=== PATIENT | male | born 1970 | race Caucasian/White ===

== ENCOUNTER 2019-12-09 14:47 | Observation (INO) | payer BC, SELFPAY ==
[2019-12-09] VITALS (8 sets, daily range): BP systolic 107–127; BP diastolic 71–89; PULSE 67–88; RESP 15–18; TEMP 36.6–36.8; O2SAT 94–96; BMI 31.6; BMI 31.0; BMI 31.1
--- NOTE | 2019-12-09 15:19 | EKG12_ITS ---
Test Reason : SYNCOPE Blood Pressure : / mmHG Vent. Rate : 081 BPM Atrial Rate : 081 BPM P-R Int : 196 ms QRS Dur : 080 ms QT Int : 344 ms P-R-T Axes : 034 032 045 degrees QTc Int : 399 ms Normal sinus rhythm Normal ECG Confirmed by VERO PATEL, CASTILLO ([id number]), website/blog editor RICCI WHITNEY ([id number]) on 12/12/2019 8:56:42 AM Referred By: CLAUDIA Confirmed By:CASTILLO PHAM MD
--- NOTE | 2019-12-09 15:21 | RAD_ITS ---
STUDY: X-RAY CHEST REASON FOR EXAM: Male, 49 years old. Nausea vomiting diarrhea. Near syncopal episode. Reported hypotension. TECHNIQUE: Portable chest. COMPARISON: 08/14/2014. FINDINGS: The lungs are clear and expanded. There is no demonstrated pleural abnormality. Normal size heart. Normal mediastinum and jo. Normal visualized pulmonary arteries. Normal visualized aortic arch and descending thoracic aorta. Normal visualized thoracic spine. Normal visualized ribs, clavicles, and shoulders. There is no demonstrated abnormality of the visualized soft tissue structures of the upper abdomen. RAD/Chest 1 View (Portable) IMPRESSION: Normal x-ray examination of the chest. Electronically Signed: Mercedes Mitchell MD at 16:02 EST Tel , Service support ,
--- NOTE | 2019-12-09 15:24 | ED.DCSUM_ITS ---
- ER Visit Summary Date of Service: 12/09/19 Chief Complaint: Lightheaded History of Present Illness: The patient is a 49 M with lightheadedness. He has been having nausea, vomiting, and diarrhea over the past day. He reports decreased oral intake. He has some upper back cramping but no other associated symptoms. He was at urgent care, sitting. He felt warm and lightheaded. His blood pressure was low. He was brought to the ED by EMS. His blood pressure was normal for EMS. He says his blood pressure normally runs 105/70. He does not take medication for this. Denies any other symptoms like bleeding, fevers, chest pain, shortness of breath, or neurologic symptoms. No recent surgeries or hospitalizations. He takes vitamins. No other meds. Physical Examination: Blood pressure 127/88. Afebrile and otherwise vitals unremarkable. Heart regular. Lungs clear. Abdomen soft and nontender. No guarding or rebound. Skin appears normal. Test Results: EKG, labs, urinalysis pending. Chest x-ray pending. Emergency Department Course and Treatment: Patient was placed on a monitor. Will check orthostatics. He was treated with IV fluids. Work-up as above. Orthostatics still pending. Patient was treated with IV fluids. Hemoglobin 16.8. Glucose 115. Liver and lipase normal. Urinalysis unremarkable. Troponin 0 0.087. Chest x-ray normal. EKG showed sinus rhythm at a rate of 81 with no signs of ischemia or infarction pattern. No heart strain or S1Q3T3 pattern. Patient is PERC negative. Patient was discussed with the hospitalist and will be admitted to observation for further care. Treatment Plan: As above Disposition: PCU observation Impression: Near syncope This note was generated with [employer] software. It may contain incorrect words, spelling, and punctuation that were not noted in review of the chart prior to signing ED Disposition - Plan for ED Patient: Referrals: Kaushik Nair MD [Primary Care Provider] -
[2019-12-09] MEDS: 0.9% Normal Saline 1,000 ML 1000 ML IV ×2 (15:41→16:45)
[2019-12-09 15:43] LABS: Absolute Lymphocyte Count 1.31 X10^3/uL (0.83-4.51); Absolute Neutrophil Count 7.2 X10^3/uL (2.0-7.7); Basophil# 0.02 X10^3/uL; Basophil% 0.2 % (0-1); Eosinophil# 0.06 X10^3/uL; Eosinophils% 0.6 % (0-5); Hematocrit 49.5 % (40-54); Hemoglobin 16.8 g/dL (13.0-16.5); Lymphocyte # 1.31 X10^3/ul (4.0); Lymphocyte % 13.7 % (19-41); Mean Corp Hgb Conc 33.9 g/dL (32-36); Mean Corpuscular Hgb 29.7 pg (27.0-32.0); Mean Corpuscular Volume 87.5 fL (80-94); Mean Platelet Vol. 9.6 fl (6.2-12.0); Monocyte# 0.93 X10^3/uL; Monocyte% 9.8 % (0-10); NRBC Flagged by Analyzer 0 % (0-5); Neutrophil # 7.19 X10^3/uL (2.7-7.7); Neutrophil % 75.5 % (47-70); Platelet Count 329 K/mm3 (150-450); RBC Distribution Width CV 12.6 % (11.6-14.6); RBC Distribution Width SD 40.3 fl (35.1-43.9); Red Blood Count 5.66 M/mm3 (4.6-6.2); White Blood Count 9.5 K/mm3 (4.4-11.0)
[2019-12-09 15:54] LABS: AST(SGOT) 17 U/L (15-37); Alanine Aminotransfer ALT/SGPT 46 U/L (16-61); Albumin, Serum 3.8 g/dL (3.2-5.0); Alkaline Phosphatase 87 U/L (45-117); Anion Gap 5 (5-15); BUN 12 mg/dL (7-18); BUN/Creat Ratio 10.3 RATIO (10-20); Bilirubin, Direct 0.19 mg/dL (0.00-0.30); Calcium,Total 8.7 mg/dL (8.5-10.1); Chloride 104 mmol/L (98-107); Creatinine, Serum 1.17 mg/dL (0.70-1.30); EST Glomerular Filtration Rate 71 mL/min (>60); Est Glom Filt Rate - Afr Amer 86 mL/min (>60); Estimated Creatinine Clearance 90.75 ml/min; Globulin 4.1 g/dL (2.2-4.2); Glucose 115 mg/dL (74-106); Lipase 85 U/L (73-393); Potassium 3.5 mmol/L (3.5-5.1); Protein, Total 7.9 g/dL (6.4-8.2); Sodium Level 136 mmol/L (136-145)
[2019-12-09 15:54] LABS: Red Blood Cells-Urine 0 SEEN /hpf (0-5); Squamous Epithelial Cells - UA 0 SEEN /hpf (0-5)
[2019-12-09 15:58] LABS: Color, Urine Yellow (Yellow); Glucose, Dipstick Normal (Normal); Ketone-Dipstick 5 mg/dl (Negative); Leukocyte Esterase-Dipstick 25 /ul (Negative); Nitrite-Dipstick Negative (Negative); Occult Blood-Urine 10 /ul (Negative); Protein-Dipstick 100 mg/dl (Negative); Urine Clarity Clear (Clear); Urine Urobilinogen 1 mg/dl (Normal)
[2019-12-09 15:59] LABS: Urine Bilirubin Dipstick 1 mg/dL (Negative)
[2019-12-09 16:03] LABS: White Blood Cells 0-5 SEEN /hpf (0-5)
[2019-12-09 16:04] LABS: Bacteria 1+ /hpf (None Seen); Fine Granular Cast- Urine 0-5 SEEN /lpf (0-5); Hyaline Cast 0-5 SEEN /lpf (0-5); Mucous, Urine 2+ /hpf (<or=2+)
--- NOTE | 2019-12-09 16:51 | HP.PCM_ITS ---
Problem List (1) Near syncope Status: Acute (2) Elevated troponin Status: Acute (3) Gastroenteritis Status: Acute (4) Family history of cardiovascular disease Status: Chronic History of Present Illness Date of Admission: 12/09/19 Chief Complaint: Patient was sent to the emergency room from an urgent care for low blood pressure and near syncope. The patient is a 49 year old M with no significant past medical history on no chronic prescribed medications who on 12/08/2019 started feeling nauseated. Throughout the night he had 2 episodes of emesis and he has also had diarrhea approximately every 2 hours. The current time is 5 PM and his last bowel movement was at noon. He went the [facility] clinic at [facility] today because he felt lightheaded. While sitting waiting to be seen he felt warm and lightheaded. Reportedly his blood pressure was in the 70s systolic and EMS was summoned. He was brought to [facility] emergency department via ambulance and his blood pressure in the squad was 105/70. He did not pass out. He did have some pain between his shoulder blades. He denied abdominal pain and also denied hematemesis, history of peptic ulcer disease, melena or hematochezia. He has no food intolerances. He states his stool looks somewhat dark but he had taken Pepto-Bismol. Vital signs at presentation to the emergency department were temperature 98.3, heart rate 88, blood pressure 127/88, respiratory rate 18 and he was 95% saturated on room air. Chest x-ray revealed no infiltrates, pleural effusions or pulmonary vascular congestion. White blood cell count and differential were unremarkable. Hemoglobin was elevated at 16.8, more likely than not secondary to hemoconcentration. The BMP was unremarkable with the exception of a mildly increased glucose at 115. There is a family history of diabetes mellitus. LFTs were unremarkable. The troponin was elevated at 0.087. UA was unremarkable. The EKG is normal. He is being admitted to a monitored bed on PCU for an elevated troponin and cardiology consult will be ordered. Past Medical History Past Medical History (Chronic Problems): Chronic Problems Family history of cardiovascular disease (Chronic) Allergies No Known Allergies Allergy (Verified 12/09/19 14:51) Home Medications: Ambulatory Orders Medication Instructions Recorded Multivitamins,Therapeutic 1 tablet PO DAILY 11/06/13 [Multivitamin] Dhea DAILY 12/09/19 Fish Oil DAILY 12/09/19 Vitamin C DAILY 12/09/19 Vitamin D DAILY 12/09/19 Surgical History: - - Lasik eye surgery, R iknee arthroscopy for meniscus repair Psychiatric History: No pertinent psych hx Lives: Spouse/ Significant Other Smoking Status: Never smoker Tobacco Use: Non-smoker Alcohol: Occasional Drugs: None - *Family History Maternal History Items: - - extensive FH of CAD on the maternal side of the family. Mother had stents at the age of 59. Many of her relatives including her father had CAD. There is also a FH of DM, HTN and HLD. His mother has had DVT and PE Paternal History Items: No pertinent history Review of Systems Constitutional: Denies: Chills, Fever, Weight Change Eyes: Denies: Blurred vision HEENT: Denies: Head Aches, Sinus Congestion, Sinus Drainage, Sore Throat Cardiovascular: Reports: Light Headedness - today only, - - he does admit to having some pain in the back, midscapular. Denies: Chest Pain, Palpitations, Paroxysmal Noc. Dyspnea, Syncope Respiratory: Denies: Cough, Hemoptysis, Pleuritic Pain, Shortness of Breath, Shortness of breath at rest, Shortness of breath upon exertion, Sputum production Gastrointestinal: Reports: Diarrhea, Nausea, Vomiting. Denies: Abdominal Pain, Dyspepsia, Hematemesis, Hematochezia Genitourinary: Denies: Dysuria Musculoskeletal: Denies: Joint Pain, Joint Tenderness, Leg Pain Skin: Denies: Jaundice, Rash, Wounds Neurological: Denies: Balance problems, Focal weakness, Numbness, Tingling Psychiatric: Denies: Anxiety, Depression, Homicidal Ideations, Suicidal Ideations Endocrine: Denies: Hx of Thyroiditis Hematologic/ Lymphatic: Denies: Easy Bruising, Easy Bleeding, Hx of blood clot VTE Information - Inpt Only VTE Present on Admission: No VTE Mechan Device Prophylaxis: None VTE Pharm Prophylaxis ordered?: No Reason prophylaxis not ordered:: Treatment Not Indicated Patient Problems: Active and Suspected Problems Near syncope (Acute) Elevated troponin (Acute) Gastroenteritis (Acute) - Physical Exam Vitals/I&O's: Vital Signs Temp Pulse Resp BP Pulse Ox 98.3 F 78 18 116/73 95 12/09/19 14:48 12/09/19 16:44 12/09/19 14:48 12/09/19 16:44 12/09/19 14:48 Oxygen Delivery Method Room Air Weight: 246 lb 14.684 oz Body Mass Index (BMI) 31.6 Intake and Output for Last 24 Hours 12/07/19 12/08/19 12/09/19 23:59 23:59 23:59 Intake Total 1000 / 1000 Balance 1000 / 1000 General: Alert, Oriented x3, Cooperative, Well developed, Well nourished HEENT: Atraumatic, PERRLA, EOMI, Normocephalic Oral: No Gingival or Mucosal Lesions/ Ulcerations, Dry Mucosa Neck: Supple, No JVD, Negative Carotid Bruits, No Nodes, Trachea Midline Lungs: Clear to auscultation, Normal air movement, No rhonchi, No wheeze, No rales Cardiovascular: Regular rate, Regular Rhythm, Normal S1, Normal S2, No murmurs, No Ectopic Activity, No rub noted, No Gallop Abdomen: Bowel Sounds Present - not hyperactive, Soft, Non Tender, Non- Distended, - - No guarding with palpation Extremities: No clubbing, No cyanosis, No edema, Capillary Refill Less than 3 Seconds, No Calf Tenderness, Peripheral Pulses Normal Skin: No rashes, No breakdown Musculoskeletal: No Tenderness to Palpation of Joints or Extremities, No Muscle Wasting Neurological: Cranial nerves II-XII grossly intact, Neuro grossly intact Psych/Mental Status: Normal Affect, Appropriate Laboratory Results 12/09/19 14:55: WBC 9.5, RBC 5.66, Hgb 16.8 H, Hct 49.5, MCV 87.5, MCH 29.7, MCHC 33.9, RDW Std Deviation 40.3, RDW Coeff of Tim 12.6, Plt Count 329, MPV 9.6, Immature Gran % (Auto) 0.200, Neut % (Auto) 75.5 H, Lymph % (Auto) 13.7 L, [place] % (Auto) 9.8, Eos % (Auto) 0.6, Baso % (Auto) 0.2, Absolute Neuts (auto) 7.2, Absolute Lymphs (auto) 1.31, Nucleated RBC % 0 12/09/19 14:55: Sodium 136, Potassium 3.5, Chloride 104, Carbon Dioxide 27.0, Anion Gap 5, BUN 12, Creatinine 1.17, Estim Creat Clear Calc 90.75, Est GFR (MDRD) Af Amer 86, Est GFR (MDRD) Non-Af 71, BUN/Creatinine Ratio 10.3, Glucose 115 H, Calcium 8.7, Total Bilirubin 0.90, Direct Bilirubin 0.19, AST 17, ALT 46, Alkaline Phosphatase 87, Troponin I 0.087 H, Total Protein 7.9, Albumin 3.8, Globulin 4.1, Lipase 85 12/09/19 15:50: Urine Color Yellow, Urine Clarity Clear, Urine pH 6.0, Ur Specific [place] 1.020, Urine Protein 100 H, Urine Glucose (UA) Normal, Urine Ketones 5 H, Urine Occult Blood 10 H, Urine Nitrite Negative, Urine Bilirubin 1 H, Urine Urobilinogen 1 H, Ur Leukocyte Esterase 25 H, Urine RBC 0 SEEN, Urine WBC 0-5 SEEN, Ur Squamous Epith Cells 0 SEEN, Urine Bacteria 1+, Hyaline Casts 0-5 SEEN, Fine Granular Casts 0-5 SEEN, Urine Mucus 2+ Current Medications Sodium Chloride () 1,000 mls @ 1,000 mls/hr IV .Q1H ELO Stop: 12/09/19 17:19 Last Admin: 12/09/19 16:45 Dose: 1,000 mls/hr Documented by: Assessment/Plan All Active Problems Near syncope (Acute) Elevated troponin (Acute) Gastroenteritis (Acute) Impressions 1. Gastroenteritis-more likely than not viral. Hydration ordered. No recent antibiotics and no history of C. difficile. No recent travel. No sick contacts that he knows of. No food intolerances 2. Indeterminate troponin with mid back pain, interscapular. Admitted to a monitored bed on PCU. Serial cardiac enzymes ordered. Cardiology consult with Dr. Miller. Treadmill nuclear stress test in the a.m. if he is feeling better. Lipid panel in the a.m. 3. Extensive maternal family history of cardiovascular disease. Code Visit OBSV E&M: [id number] Initial observation care L2
--- NOTE | 2019-12-09 17:16 | EKG12_ITS ---
Test Reason : DYSRHYTHMIA Blood Pressure : / mmHG Vent. Rate : 078 BPM Atrial Rate : 078 BPM P-R Int : 194 ms QRS Dur : 082 ms QT Int : 364 ms P-R-T Axes : 039 039 035 degrees QTc Int : 414 ms Normal sinus rhythm Normal ECG When compared with ECG of 09-DEC-2019 15:29, MANUAL COMPARISON REQUIRED, DATA IS UNCONFIRMED Confirmed by BRIAN MONTERO ([id number]), loan expeditor RICCI WHITNEY ([id number]) on 12/13/2019 9:53:04 AM Referred By: DAPHNE Confirmed By:BRIAN MONTERO
[2019-12-09 17:42] LABS: Magnesium 2.2 mg/dL (1.6-2.6)
--- NOTE | 2019-12-09 18:15 | STEWCON_ITS ---
Reason For Study: FAMLY HX, SYNCOPE/NEAR SYNCOPE Stress Results Protocol: Rao Protocol WITH DEFINITY Maximum Predicted HR: 173 bpm Target HR: 147 bpm % Maximum Predicted HR: 91 % DurationHeart Rate Stage (mm:ss) (bpm) BP Comment BASELINE 70 118/883 CC DEFINITY FOR ENTIRE TEST STAGE 1 3:00 90 122/78 STAGE 2 3:00 96 130/70 STAGE 3 3:00 115 146/76 STAGE 4 3:00 137 160/82 STAGE 5 2:00 157 / RECOVERY 97 124/70 Stress Duration: 14:00 mm:ss Maximum Stress HR: 157 bpm Baseline Echocardiogram Findings The estimated ejection fraction is 65 %. Stress Echo Wall motion Data Resting WM Intermediate WM Stress WM Resting Wall Motion Wall Motion Stress No regional wall motion No regional wall motion abnormalities noted. abnormalities noted. EKG Data The baseline ECG displays normal sinus rhythm. The patient exercised according to the regular Rao protocol for a total duration of 14:00. The maximum heart rate attained was 157 beats per minute. This was 90% of maximum predicted heart rate. The patient exercised into stage 5 of the Rao protocol. During stress, there were no ST or T wave changes noted to suggest ischemia. No clinical angina was noted. No arrhythmias noted. Interpretation Summary The estimated ejection fraction is 65 %. Normal, adequate, treadmill echocardiogram. Negative for ischemia by EKG and echocardiographic criteria. No anginal symptoms noted. No arrhythmias noted. Above average exercise capacity for age. Test terminated due to the attainment target heart rate and dyspnea. Final LVEF is 75%. Decreased sensitivity due to poor echo windows requiring Definity agent. Patient tolerate procedure well. No complications. The study was technically difficult. Contrast injection was performed. Ordering Physician: Imtiaz Miller Referring Physician: Imtiaz Miller MD Performed By: Megan Santiago, JASS, RVT
[2019-12-09] MEDS: Aspirin 81 MG TAB.CHEW 324 MG PO (18:48)
[2019-12-09] MEDS: 0.9% Saline Lock 10 ML Syringe IV (19:54)
[2019-12-09] MEDS: Atorvastatin Calcium 40 MG Tablet PO (21:23)
[2019-12-09] MEDS: Famotidine 20 MG Tablet PO (21:23)
[2019-12-10 03:00] VITALS: BP 105/79; PULSE 64; PULSE 66; RESP 16; TEMP 37.2; O2SAT 97
[2019-12-10 05:17] LABS: Hemoglobin 14.7 g/dL (13.0-16.5); Mean Corp Hgb Conc 34.2 g/dL (32-36); Mean Corpuscular Hgb 30.2 pg (27.0-32.0); Mean Corpuscular Volume 88.5 fL (80-94); Mean Platelet Vol. 9.2 fl (6.2-12.0); Platelet Count 263 K/mm3 (150-450); RBC Distribution Width CV 12.7 % (11.6-14.6); RBC Distribution Width SD 41.3 fl (35.1-43.9); Red Blood Count 4.86 M/mm3 (4.6-6.2); White Blood Count 7.4 K/mm3 (4.4-11.0)
[2019-12-10 05:25] VITALS: BP 119/74; PULSE 72; RESP 16; TEMP 36.7; O2SAT 97
[2019-12-10] MEDS: Aspirin E.C. 81 MG Tablet PO (05:27)
[2019-12-10 05:29] LABS: D-Dimer Quantitative (DVT/PE) 0.44 FEU/ug/m (0.27-0.49)
[2019-12-10 05:41] LABS: Anion Gap 4 (5-15); BUN 7 mg/dL (7-18); BUN/Creat Ratio 8.3 RATIO (10-20); Calcium,Total 8.3 mg/dL (8.5-10.1); Chloride 109 mmol/L (98-107); Cholesterol 130 mg/dL (200); Creatinine, Serum 0.84 mg/dL (0.70-1.30); EST Glomerular Filtration Rate 103 mL/min (>60); Est Glom Filt Rate - Afr Amer 125 mL/min (>60); Glucose 98 mg/dL (74-106); High Density Lipoprotein 40 mg/dL; Sodium Level 141 mmol/L (136-145); Triglycerides 92 mg/dL; Very Low Density Lipoprotein 18 mg/dL (5-40)
--- NOTE | 2019-12-10 05:55 | EKG12_ITS ---
Test Reason : AM EKG Blood Pressure : / mmHG Vent. Rate : 068 BPM Atrial Rate : 068 BPM P-R Int : 188 ms QRS Dur : 082 ms QT Int : 388 ms P-R-T Axes : 046 041 038 degrees QTc Int : 412 ms Normal sinus rhythm Normal ECG When compared with ECG of 09-DEC-2019 17:42, MANUAL COMPARISON REQUIRED, DATA IS UNCONFIRMED Confirmed by BRIAN MONTERO ([id number]), tape editor RICCI WHITNEY ([id number]) on 12/13/2019 9:59:34 AM Referred By: DR SERNA Confirmed By:BRIAN MONTERO
--- NOTE | 2019-12-10 05:55 | ECHOCS_ITS ---
Reason For Study: Family Hx Procedure This was a 2D Doppler, Color Flow transthoracic echocardiogram. Exam performed in department. Left Ventricle Normal size and thickness. The estimated ejection fraction is 65 %. Normal diastology for age. No regional wall motion abnormalities noted. Right Ventricle Normal size and thickness. Normal systolic function. Atria Normal left atrium. Normal right atrium. Normal atrial septum. Mitral Valve The mitral valve is structurally normal. No prolapse or stenosis seen. Trivial mitral valve insufficiency. Tricuspid Valve Normal tricuspid valve. Trivial tricuspid valve insufficiency. Right ventricular systolic pressure estimated to be 23 mmHg. Aortic Valve Normal aortic valve. Trisinus/trileaflet aortic valve. Pulmonic Valve Normal pulmonic valve. Great Vessels Normal aortic root. Normal arch. Normal inferior vena cava. Inferior vena cava collapse with sniff. Pericardium/Pleural No pericardial effusion. Medication Diluted definity 3ml given slow IV push to enhance endocardial definition. MMode/2D Measurements & Calculations LVIDd: 4.4 cm IVSd: 1.2 cm LAV(MOD-bp): 37.4 ml LVIDs: 2.5 cm LVPWd: 1.1 cm RVDd: 2.7 cm FS: 44.2 % LAV(MOD-bp) Indexed: 15.9 ml/m2 LAV(MOD-sp2): 52.9 ml LAV(MOD-sp4): 24.4 ml SV(MOD-sp4): 68.3 ml SV(sp4-el): 72.9 ml LVAd ap4: 32.5 cm2 EDV(MOD-sp4): 101.3 ml EDV(sp4-el): 105.6 ml LVAs ap4: 16.3 cm2 ESV(MOD-sp4): 33.0 ml ESV(sp4-el): 32.6 ml EF(MOD-sp4): 67.4 % EF(sp4-el): 69.1 % LA A4 area: 13.6 cm2 RA A4 area: 14.2 cm2 Doppler Measurements & Calculations MV E max antwan: 99.7 cm/sec Lat Peak E' Antwan: 12.6 cm/sec Med Peak E' Antwan: 9.6 cm/sec MV A max antwan: 58.1 cm/sec E/E' lat: 7.9 E/E' med: 10.4 MV E/A: 1.7 Ao V2 max: 144.5 cm/sec LV V1 max: 111.7 cm/sec PA V2 max: 81.5 cm/sec Ao max P.4 mmHg LV V1 max P.0 mmHg Ao V2 mean: 95.8 cm/sec Ao mean P.1 mmHg Ao V2 VTI: 29.3 cm TR max antwan: 211.0 cm/sec TR max P.8 mmHg Interpretation Summary The estimated ejection fraction is 65 %. Normal diastology for age. Trivial mitral valve insufficiency. Trivial tricuspid valve insufficiency. Right ventricular systolic pressure estimated to be 23 mmHg. There is no comparison study available. The study was technically difficult. Contrast injection was performed. Ordering Physician: Chana Day Referring Physician: Kaushik Nair Performed By: Megan Santiago RDCS, RVT
[2019-12-10 06:59] VITALS: PULSE 71
--- NOTE | 2019-12-10 09:37 | CON.PCM_ITS ---
Problem List (1) Near syncope Status: Acute (2) Elevated troponin Status: Acute (3) Gastroenteritis Status: Acute (4) Family history of cardiovascular disease Status: Chronic Reason for Consult Date of Consultation: 12/10/19 Reason for Consultation: Lightheadedness, dizziness, indeterminate troponin, family history of heart disease History of Present Illness: The patient is a 49 year old M lifelong non-smoker, nondrinker, nondiabetic, no previous known cardiovascular disease, positive family history of coronary artery disease with stenting in his mother in her mid 60s, who was doing well up until the last few days when he developed a flulike illness causing him to have nausea, vomiting, and diarrhea. The patient sought medical assistance at a local [facility] clinic, and became lightheaded during that visit. This precipitated a transportation to [facility] ER where he complained of mid back pain. His EKG showed normal sinus rhythm, no acute changes. His initial troponin was 0.087, and decreased to 0.083. The patient underwent a 2D echo with Doppler this morning which demonstrated normal LV size, normal LV function, RVSP in the normal limits. He then underwent a treadmill echocardiogram which was negative for inducible ischemia. Upon further history he denies any recent chest pain, angina, shortness of breath or dyspnea on exertion. [] Past Medical History Allergies/Adverse Reactions: Allergies No Known Allergies Allergy (Verified 12/09/19 14:51) Home Medications: Ambulatory Orders Medication Instructions Recorded Multivitamins,Therapeutic 1 tablet PO DAILY 11/06/13 [Multivitamin] Dhea DAILY 12/09/19 Fish Oil DAILY 12/09/19 Vitamin C DAILY 12/09/19 Vitamin D DAILY 12/09/19 Past Medical History (Chronic Problems): Chronic Problems Family history of cardiovascular disease (Chronic) Surgical History: - - Lasik eye surgery, R iknee arthroscopy for meniscus repair Psychiatric History: No pertinent psych hx - *Family History Maternal History Items: - - extensive FH of CAD on the maternal side of the family. Mother had stents at the age of 59. Many of her relatives including her father had CAD. There is also a FH of DM, HTN and HLD. His mother has had DVT and PE Paternal History Items: No pertinent history Lives: Spouse/ Significant Other Smoking Status: Never smoker Tobacco Use: Non-smoker Alcohol: Occasional Drugs: None Review of Systems - Review of Systems General: Denies: Fever, Night Sweats, Fatigue Cardiovascular: Denies: Chest Discomfort, Shortness of Breath, Orthopnea, PND, Peripheral Edema, Palpitations, Lightheadedness, Dizziness, Near Syncope, Synco pe Respiratory: Denies: Cough, Sputum Production, Hemoptysis Gastrointestinal: Denies: Hematemesis, Hematochezia, Melena Genitourinary: Denies: Dysuria, Hematuria Skin: Denies: Rash Subjectve: Patient no acute distress. Objective: Vital Signs Temp Pulse Resp BP Pulse Ox 98.1 F 71 16 119/74 97 12/10/19 05:25 12/10/19 06:59 12/10/19 05:25 12/10/19 05:25 12/10/19 05:25 Oxygen Delivery Method Room Air Weight: 241 lb 13.553 oz Body Mass Index (BMI) 31.0 Intake and Output for Last 24 Hours 12/08/19 12/09/19 12/10/19 23:59 23:59 23:59 Intake Total 2950.42 / 2950.42 541.25 / 541.25 Balance 2950.42 / 2950.42 541.25 / 541.25 General: Awake, Alert, Oriented x 3 HEENT: PERRL, EOMI, Sclera Non Icteric Neck: Supple, Good ROM, No Lymph Node Enlargement Lungs: Clear to auscultation Cardiovascular: Regular Rhythm, Normal S1, Normal S2, No Murmurs, No Rubs, No Gallops Vascular: No Carotid Bruits, Normal Femoral Pulses, Normal Radial Pulses, Normal Dorsalis Pedal Pulse, Normal Posterior Tibial Pulses Abdomen: Bowel Sounds Present, Soft, Non Tender, No HSM, No Organomegaly Extremities: No Cyanosis, No Clubbing, No edema Neurological: No Focal Motor or Sensory Deficit 12/09/19 14:55: WBC 9.5, RBC 5.66, Hgb 16.8 H, Hct 49.5, MCV 87.5, MCH 29.7, MCHC 33.9, Plt Count 329, MPV 9.6, Immature Gran % (Auto) 0.200, Neut % (Auto) 75.5 H, Lymph % (Auto) 13.7 L, [place] % (Auto) 9.8, Eos % (Auto) 0.6, Baso % (Auto) 0.2, Absolute Neuts (auto) 7.2, Nucleated RBC % 0 12/09/19 14:55: Sodium 136, Potassium 3.5, Chloride 104, Carbon Dioxide 27.0, Anion Gap 5, BUN 12, Creatinine 1.17, Est GFR (MDRD) Af Amer 86, Est GFR (MDRD) Non-Af 71, BUN/Creatinine Ratio 10.3, Glucose 115 H, Calcium 8.7, Total Bilirubin 0.90, Direct Bilirubin 0.19, Troponin I 0.087 H 12/09/19 14:55: Magnesium 2.2 12/09/19 15:50: Urine Color Yellow, Urine Clarity Clear, Urine pH 6.0, Ur Specific [place] 1.020, Urine Protein 100 H, Urine Glucose (UA) Normal, Urine Ketones 5 H, Urine Occult Blood 10 H, Urine Nitrite Negative, Urine Bilirubin 1 H, Urine Urobilinogen 1 H, Ur Leukocyte Esterase 25 H, Urine RBC 0 SEEN, Urine WBC 0-5 SEEN 12/09/19 17:50: Troponin I 0.085 H 12/09/19 20:45: Troponin I 0.083 H 12/10/19 04:50: Sodium 141, Potassium 4.0, Chloride 109 H, Carbon Dioxide 28.0, Anion Gap 4 L, BUN 7, Creatinine 0.84, Est GFR (MDRD) Af Amer 125, Est GFR (MDRD) Non-Af 103, BUN/Creatinine Ratio 8.3 L, Glucose 98, Calcium 8.3 L, Triglycerides 92, Cholesterol 130, LDL Cholesterol 72, VLDL Cholesterol 18, HDL Cholesterol 40 12/10/19 04:50: WBC 7.4, RBC 4.86, Hgb 14.7, Hct 43.0, MCV 88.5, MCH 30.2, MCHC 34.2, Plt Count 263, MPV 9.2 12/10/19 04:50: D-Dimer Quant (PE/DVT) 0.44 Rhythm: EKG: ECHO: Stress Test: Cardiac Cath: PCI: CT Surgery: Holter monitor: EPS: PPM: CXR: Chest CT Scan: Assessment/Plan 1. Lightheadedness and dizziness: The patient's lightheadedness and dizziness are most likely a result of his recent GI illness with associated nausea, vomiting, and diarrhea and most likely mild dehydration. The patient is feeling much better with IV fluid resuscitation. His echocardiogram shows normal LV size and function normal pulmonary pressures, and his stress echocardiogram is negative for inducible ischemia. I do not believe the patient requires any additional cardiac evaluation at this time. His LDL 72, and HDL is 40. No additional antilipid therapy needed at this time. 2. Patient may be discharged home and follow-up with his primary care physician. 3. Thank you very much for the opportunity to participate in the cardiac care of your patient. Consultation time took place between 8 AM and 8:30 AM. Code Visit Inpatient E&M: [id number] Init Hosp L2
--- NOTE | 2019-12-10 10:38 | DCINST_ITS ---
- Discharge Diagnoses Current Active Problems: Current Active and Chronic Problems Near syncope (Acute) Elevated troponin (Acute) Gastroenteritis (Acute) Family history of cardiovascular disease (Chronic) You will use the following diet at home:: Regular Discharge Activity: Return to Normal Activity Weight Bearing Status: Weight bearing as tolerated Call your doctor if you observe: Fever of 101 or Higher, Coldness, Increased Pain, Change in Color, Inability to have a bowel movement, Shortness of breath, Dizziness, Fainting spells, Swelling in the ankles, Chest pain, Prolonged hiccoughing, Increased palpitations (irregular heartbeat), Calf discomfort, Uncontrolled pain Allergies/Adverse Reactions: Allergies No Known Allergies Allergy (Verified 12/09/19 14:51) Medications to take at Discharge Multivitamins,Therapeutic [Multivitamin] 1 tablet PO DAILY 11/06/13 Dhea DAILY 12/09/19 Fish Oil DAILY 12/09/19 Vitamin C DAILY 12/09/19 Vitamin D DAILY 12/09/19 Primary Care Physician: Kaushik Nair MD [Primary Care Provider] - Please follow up with your Primary Care Physician in: in 2 week Test Results: Test results from this visit will be discussed in further detail at your follow- up appointment, if applicable.
--- NOTE | 2019-12-10 10:40 | DS.PCM_ITS ---
Discharge Date and Diagnosis Date of Admission: 12/09/19 Date of Discharge: 12/10/19 - Primary Discharge Diagnosis Active and Suspected Problems Near syncope (Acute) Elevated troponin (Acute) Gastroenteritis (Acute) - Secondary Discharge Diagnosis Chronic Problems Family history of cardiovascular disease (Chronic) Hospital Course and Treatment Imaging Results: 12/10/19 05:55 Echo Complete W/ Contrast [ECHO] Routine Summary of Care Provided: The patient is a 49 year old M with no significant past medical history was admitted for 2 episodes of nausea, diarrhea every 2-3 hours, nausea and lightheadedness and low blood pressure. With blood pressure was 70s in urgent care and came by EMS and was admitted. Patient was resuscitated. He did not had abdominal pain. In ED his blood pressure was 127/88. Chest x-ray no acute abnormality. UA negative no leukocytosis. Hemoglobin 16.8 more likely secondary to hemoconcentration. BMP unremarkable. Repeat CBC shows H&H 14.7/43. [] Diagnosis: 1 Acute gastroenteritis most probably viral with dehydration and hemoconcentration: Resolved. No recent antibiotic intake or history of C. difficile or travel history. No sick contacts. 2. Indeterminate troponin with mid back pain, interscapular. Mildly elevated troponins with mild interscapular back pain and near syncope symptoms therefore x ray consultant consulted. EKG normal. Patient had a treadmill stress echo and was negative for acute ischemia. Echo shows normal LV size, and systolic function. Fasting profile within normal limit. 3. Extensive maternal family history of cardiovascular disease. Discharge medication reconciliation done. Discharge follow-up instructions completed. Discharge process discussed with the patient and all questions were answered to patient's satisfaction. Follow-up with PCP Subjective: Seen and examined. Patient had mild diarrhea, dizziness and low pressure for which she was admitted that has resolved. no shortness of breath or respiratory distress. Hemodynamically stable. No hypoxia or tachypnea - Physical Exam Vitals/I&O's: Vital Signs Temp Pulse Resp BP Pulse Ox 98.1 F 71 16 119/74 97 12/10/19 05:25 12/10/19 06:59 12/10/19 05:25 12/10/19 05:25 12/10/19 05:25 Oxygen Delivery Method Room Air Weight: 241 lb 13.553 oz Body Mass Index (BMI) 31.0 Intake and Output for Last 24 Hours 12/08/19 12/09/19 12/10/19 23:59 23:59 23:59 Intake Total 2950.42 / 2950.42 541.25 / 541.25 Balance 2950.42 / 2950.42 541.25 / 541.25 General: Alert, Oriented x3, Cooperative HEENT: Atraumatic, PERRLA, EOMI, Normocephalic Neck: Supple, No JVD, Negative Carotid Bruits Lungs: Clear to auscultation, Normal air movement, No rhonchi, No wheeze, No rales Cardiovascular: Regular rate, Regular Rhythm, Normal S1, Normal S2, No murmurs Abdomen: Bowel Sounds Present, Soft, Non Tender, Non-Distended Extremities: No edema, Capillary Refill Less than 3 Seconds Skin: No rashes, No breakdown Musculoskeletal: No Tenderness to Palpation of Joints or Extremities Neurological: Cranial nerves II-XII grossly intact Psych/Mental Status: Normal Affect, Appropriate Laboratory Results 12/09/19 14:55: WBC 9.5, RBC 5.66, Hgb 16.8 H, Hct 49.5, MCV 87.5, MCH 29.7, MCHC 33.9, RDW Std Deviation 40.3, RDW Coeff of Tim 12.6, Plt Count 329, MPV 9.6, Immature Gran % (Auto) 0.200, Neut % (Auto) 75.5 H, Lymph % (Auto) 13.7 L, Roane % (Auto) 9.8, Eos % (Auto) 0.6, Baso % (Auto) 0.2, Absolute Neuts (auto) 7.2, Absolute Lymphs (auto) 1.31, Nucleated RBC % 0 12/09/19 14:55: Sodium 136, Potassium 3.5, Chloride 104, Carbon Dioxide 27.0, Anion Gap 5, BUN 12, Creatinine 1.17, Estim Creat Clear Calc 90.75, Est GFR (MDRD) Af Amer 86, Est GFR (MDRD) Non-Af 71, BUN/Creatinine Ratio 10.3, Glucose 115 H, Calcium 8.7, Total Bilirubin 0.90, Direct Bilirubin 0.19, AST 17, ALT 46, Alkaline Phosphatase 87, Troponin I 0.087 H, Total Protein 7.9, Albumin 3.8, Globulin 4.1, Lipase 85 12/09/19 14:55: Magnesium 2.2 12/09/19 15:50: Urine Color Yellow, Urine Clarity Clear, Urine pH 6.0, Ur Specific [place] 1.020, Urine Protein 100 H, Urine Glucose (UA) Normal, Urine Ketones 5 H, Urine Occult Blood 10 H, Urine Nitrite Negative, Urine Bilirubin 1 H, Urine Urobilinogen 1 H, Ur Leukocyte Esterase 25 H, Urine RBC 0 SEEN, Urine WBC 0-5 SEEN, Ur Squamous Epith Cells 0 SEEN, Urine Bacteria 1+, Hyaline Casts 0-5 SEEN, Fine Granular Casts 0-5 SEEN, Urine Mucus 2+ 12/09/19 17:50: Troponin I 0.085 H 12/09/19 20:45: Troponin I 0.083 H 12/10/19 04:50: Sodium 141, Potassium 4.0, Chloride 109 H, Carbon Dioxide 28.0, Anion Gap 4 L, BUN 7, Creatinine 0.84, Estim Creat Clear Calc 126.40, Est GFR (MDRD) Af Amer 125, Est GFR (MDRD) Non-Af 103, BUN/Creatinine Ratio 8.3 L, Glucose 98, Calcium 8.3 L, Triglycerides 92, Cholesterol 130, LDL Cholesterol 72, VLDL Cholesterol 18, HDL Cholesterol 40 12/10/19 04:50: WBC 7.4, RBC 4.86, Hgb 14.7, Hct 43.0, MCV 88.5, MCH 30.2, MCHC 34.2, RDW Std Deviation 41.3, RDW Coeff of Tim 12.7, Plt Count 263, MPV 9.2 12/10/19 04:50: D-Dimer Quant (PE/DVT) 0.44 Current Medications Acetaminophen (Tylenol) 650 mg PO Q6H PRN PRN PRN Reason: Pain Score 1-10/Temp > 100.7 F Al Hydroxide/Mg Hydroxide (Mylanta Ii) 30 ml PO Q6H PRN PRN PRN Reason: Gastric Burning Aspirin (Ecotrin) 81 mg PO DAILY@0800 [facility] Last Admin: 12/10/19 05:27 Dose: 81 mg Documented by: Atorvastatin Calcium (Lipitor) 40 mg PO QHS [facility] Last Admin: 12/09/19 21:23 Dose: 40 mg Documented by: Famotidine (Pepcid) 20 mg PO BID [facility] Last Admin: 12/10/19 09:46 Dose: Not Given Documented by: Potassium Chloride 10 meq/ (Sodium Chloride) 1,005 mls @ 125 mls/hr IV .[id number] [facility] Last Admin: 12/10/19 03:50 Dose: 125 mls/hr Documented by: Sodium Chloride () 250 mls @ 15 mls/hr IV .[id number] PRN PRN Reason: Saline Flush Sodium Chloride () 250 mls @ 15 mls/hr IV .[id number] PRN PRN Reason: Additional IVPB Infusion Nitroglycerin (Nitrostat) 0.4 mg SUBLINGUAL Q5M PRN PRN Reason: CARDIAC/CHEST PAIN Ondansetron HCl (Zofran) 4 mg IV Q8H PRN PRN PRN Reason: NAUSEA/VOMITING Prochlorperazine Edisylate (Compazine Iv) 5 mg IV Q4H PRN PRN PRN Reason: Breakthrough Nausea/Vomiting Sodium Chloride () 10 - 40 ml IV UD PRN PRN Reason: SALINE FLUSH Last Admin: 12/09/19 19:54 Dose: 10 ml Documented by: Zolpidem Tartrate (Ambien (Generic)) 5 mg PO QHS PRN PRN PRN Reason: INSOMNIA Home Medications: Medications to take at Discharge Multivitamins,Therapeutic [Multivitamin] 1 tablet PO DAILY 11/06/13 Dhea DAILY 12/09/19 Fish Oil DAILY 12/09/19 Vitamin C DAILY 12/09/19 Vitamin D DAILY 12/09/19 Primary Care Physician: Kaushik Nair MD [Primary Care Provider] - Medical Necessity - Tobacco Use Smoking Status: Never smoker Tobacco Use: Non-smoker Meaningful Use Info Meaningful Use Diagnoses (Choose all that apply): None applicable Code Visit OBSV E&M: 29941 Observation care discharge
--- NOTE | 2019-12-10 10:44 | PHA.DC.MR ---
Pharmacy Service has performed discharge medication reconciliation for this patient. The patient's discharge medication list was reviewed for discrepancies and discrepancies were resolved. Home Medications Multivitamins,Therapeutic [Multivitamin] 1 tablet PO DAILY 11/06/13 Dhea DAILY 12/09/19 Fish Oil DAILY 12/09/19 Vitamin C DAILY 12/09/19 Vitamin D DAILY 12/09/19
== END 2019-12-10 10:39 | disposition home or self-care (01) ==
LOC: ED 15:36 → PCU 16:58
PROVIDERS: Admitting Provider Internal Medicine; Emergency Provider Emergency Medicine; PCP Family Medicine; Visit Provider Internal Medicine
DX: R55 Syncope and collapse (principal); K52.9 Noninfective gastroenteritis and colitis, unspecified; Z82.49 Family history of ischemic heart disease and other diseases of the circulatory system; I08.1 Rheumatic disorders of both mitral and tricuspid valves; R42 Dizziness and giddiness; R79.89 Other specified abnormal findings of blood chemistry
CPT/HCPCS: 36415; 71045; 80048; 80061; 80076; 81001; 83690; 83735; 84484; 85025; 85027; 85379; 93005; 93017; 93306; 93350; 96360; 96361; 99218; 99285; J7030; Q9957; A4216; C8928; C8929; G0378

== ENCOUNTER 2021-11-27 09:53 | Outpatient (CLI) | payer BC, SELFPAY ==
[2021-11-27 12:19] LABS: Absolute Lymphocyte Count 2.63 X10^3/uL (0.83-4.51); Absolute Neutrophil Count 3.8 X10^3/uL (2.0-7.7); Basophil# 0.06 X10^3/uL; Basophil% 0.8 % (0-1); Eosinophil# 0.24 X10^3/uL; Eosinophils% 3.1 % (0-5); Hematocrit 46.7 % (40-54); Hemoglobin 15.9 g/dL (13.0-16.5); Lymphocyte # 2.63 X10^3/ul (0.83-4.51); Lymphocyte % 33.6 % (19-41); Mean Corpuscular Hgb 30.5 pg (27.0-32.0); Mean Corpuscular Volume 89.6 fL (80-94); Mean Platelet Vol. 9.8 fl (6.2-12.0); Monocyte# 1.06 X10^3/uL; Monocyte% 13.5 % (0-10); NRBC Flagged by Analyzer 0 % (0-5); Neutrophil # 3.82 X10^3/uL (2.7-7.7); Neutrophil % 48.7 % (47-70); Platelet Count 396 K/mm3 (150-450); RBC Distribution Width CV 12.4 % (11.6-14.6); RBC Distribution Width SD 40.9 fl (35.1-43.9); Red Blood Count 5.21 M/mm3 (4.6-6.2); White Blood Count 7.8 K/mm3 (4.4-11.0)
[2021-11-27 12:35] LABS: Vitamin D,25 Hydroxy 38.8 ng/mL
[2021-11-27 12:57] LABS: ALB/GLOB Ratio 0.9 RATIO (0.9-2.4); AST(SGOT) 29 U/L (15-37); Alanine Aminotransfer ALT/SGPT 59 U/L (16-61); Albumin, Serum 3.7 g/dL (3.2-5.0); Alkaline Phosphatase 99 U/L (45-117); Anion Gap 6 (5-15); BUN 15 mg/dL (7-18); BUN/Creat Ratio 17.6 RATIO (10-20); Calcium,Total 8.8 mg/dL (8.5-10.1); Chloride 105 mmol/L (98-107); Cholesterol 194 mg/dL (200); Creatinine, Serum 0.85 mg/dL (0.70-1.30); EST Glomerular Filtration Rate 101 mL/min (>60); Est Glom Filt Rate - Afr Amer 123 mL/min (>60); Globulin 3.9 g/dL (2.2-4.2); Glucose 94 mg/dL (74-106); High Density Lipoprotein 37 mg/dL; Potassium 3.9 mmol/L (3.5-5.1); Protein, Total 7.6 g/dL (6.4-8.2); Sodium Level 138 mmol/L (136-145); Triglycerides 449 mg/dL
== END 2021-11-27 23:59 | disposition short-term general hospital (02) ==
LOC: MFPLAB 09:54
PROVIDERS: PCP Family Medicine; Referring Provider Family Medicine; Visit Provider Family Medicine
DX: Z00.00 Encounter for general adult medical examination without abnormal findings (principal); E55.9 Vitamin D deficiency, unspecified
CPT/HCPCS: 36415; 80053; 80061; 82306; 84443; 85025

== ENCOUNTER 2021-12-10 07:37 | Outpatient (CLI) | payer BC, SELFPAY ==
[2021-12-10 10:31] LABS: Cholesterol 178 mg/dL (200); High Density Lipoprotein 43 mg/dL; Triglycerides 169 mg/dL; Very Low Density Lipoprotein 34 mg/dL (5-40)
== END 2021-12-10 23:59 | disposition home or self-care (01) ==
LOC: MTLAB 07:39
PROVIDERS: PCP Family Medicine; Referring Provider Family Medicine; Visit Provider Family Medicine
DX: E78.1 Pure hyperglyceridemia (principal)
CPT/HCPCS: 36415; 80061

== ENCOUNTER → 2023-12-02 | Outpatient (CLI) | payer BC, SELFPAY ==
--- OUTSIDE RECORDS SUMMARY | 2023-12-02 09:45 | XMS RPT_ITS | CCD ---
Author Name Unknown Address [address] [place] [address] Organization [facility] Care Team Providers Care Ore Bridge Operator Name Role Phone Kaushik Nair MD Primary Care Provider 1( [phone] Mindy High Primary Care Provider ALLA VEE Attending ALLA Lambert Referring MINDY Schaeffer Primary Care Unavailchavo parham Allergies Allergy Classification Reported Allergen(s) Allergy Type Date of Onset Reaction(s) Facility (3 sources) Pollen; Translations: [POLLEN EXTRACTS] Drug Allergy 03-25-2020 Other: See Comments [facility] Medications Current Medications Medication Drug Class(es) Dates Sig (Normalized) Sig (Original) benoxinate hydrochloride 4 mg/ml / fluorescein sodium 2.5 mg/ml ophthalmic solution (1 source) Diagnostic Dye Start: 01-29-2022 End: 01-30-2022 fluorescein-benoxi abraham 0.25-0.4 % 1 Drop (FLURESS) Completed/Discontinued Medications Medication Drug Class(es) Dates Sig (Normalized) Sig (Original) CARBOXYMETHYLCELL/GLY CERIN/PF (REFRESH OPTIVE SENSITIVE, PF, OPHTHALMIC) (2 sources) take 1 drop(s) into the eye(s) four times daily CARBOXYMETHYLCELL/GL YCERIN/PF (REFRESH OPTIVE SENSITIVE, PF, OPHTHALMIC) Use 1 Drop in eyes four times daily. 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] Onset: 12-27-2016 12-26-2019 Episodic Results Test Name Value Interpretation Reference Range Facil ity Encounters Encounter Date Encounter Type Care Provider Facility Start: 02-01-2023 End: 02-01-2023 ambulatory ALLA VEE Facility:[facility] Start: 02-01-2023 End: 02-01-2023 Patient encounter procedure Alla Vee OD Work Phone: Ophthalmology Procedures Date Procedure Procedure Detail Performing Clinician Start: 05-22-2016 History of laser assisted in situ keratomileusis S/P LASIK (laser assisted in situ keratomileusis) of both eyes Alla Vee OD Work Phone: History of laser ass isted in situ keratomileusis S/P LASIK (laser assisted in situ keratomileusis) of both eyes Alla Vee OD Work Phone: History of laser ass isted in situ keratomileusis S/P LASIK (laser assisted in situ keratomileusis) of both eyes Alla Vee OD Work Phone: Plan of Treatment Date Care Activity Detail Author Start: 06-24-2023 Influenza vaccination INFLUENZA (Sea son Ended) [facility] Start: 10-24-2022 DEPRESSION ASSESSMENT DEPRESSION ASS ESSMENT [facility] Start: 2022 SHINGRIX VACCINE (1 of 2) SHINGRIX V ACCINE (1 of 2) [facility] Start: 06-24-2022 Influenza vaccination INFLUENZA (Sea son Ended) [facility] Start: 2017 COLOGUARD (FIT-DNA) COLOGUARD (FIT-D NA) [facility] Start: 2017 Colonoscopy COLONOSCOPY [facility] Start: 2017 COLORECTAL CANCER SCREENING COLORECTAL CANCER SCREENING [facility] Start: [address] [facility] Start: 2017 DIABETES SCREEN DIABETES SCREEN [facility] Start: 2017 FECAL OCCULT BLOOD FECAL OCCULT BLOO D [facility] Start: [address] [facility] Start: 2007 LIPID SCREEN LIPID SCREEN [facility] Start: 1991 Urine microalbumin profile DTAP,TDAP ,TD (1 - Tdap) [facility] Start: 1990 HEPATITIS C SCREENING HEPATITIS C SC REENING [facility] Start: 1990 HIV SCREENING HIV SCREENING [facility] Start: 1984 Adult depression scr eening assessment DEPRESSION SCREENING [facility] Start: 1977 COVID-19 VACCINE (1) COVID-19 VACCIN E (1) [facility] Start: 01-27-1973 COVID-19 VACCINE (#1) COVID-19 VACCI NE (#1) [facility] Start: 1972 HEPATITIS B (1 of 3 - 3-dose series) HEPATITIS B (1 of 3 - 3-dose series) [facility] Payers Date Payer Category Payer Unknown [employer] PPO [id number] 2021-Present [phone] [address] [place] [address] PPO [id number] 2021 Unknown [employer] SS PPO [id number] 2021-Present [phone] [address] [place] [address] PPO [id number] 2021 Unknown [id number] Social History Date Type Detail Facility Start: 05-04-2016 Tobacco smoking stat us MEIS Never smoked tobacco [facility] Work Phone: Start: 01-29-2022 End: 02-01-2023 Alcohol intake Current non-drinker of alcohol (finding) [facility] Start: 1970 Sex Assigned At Not on file [facility] Start: 01-19-2022 End: 01-29-2022 Exposure to SARS-CoV-2 (event) Not sure [facility] Start: 05-04-2016 Tobacco use and exposure Smokeless tobacco non-user [facility] Progress note 02-01-2023 Note Date & Type Note Facility 02-01-2023 Note HNO ID: [id number] Author: Alla Vee OD Service: ? Author Type: MINT WAFER DEPOSITOR Type: Progress Notes Filed: 02/01/2023 2:21 PM Note Text: ASSESSMENT/PLAN: 1. Vitreous floaters of both eyes - ICD9: 379.24, ICD10: H43.393 (primary diagnosis) Vitreal floaters stable both eyes. Retinas flat and intact with no apparent retinal tear or traction. Discussed symptoms of retinal tear/detachment and if seen patient will return to clinic without delay. 2. S/P LASIK (laser assisted in situ keratomileusis) of both eyes - ICD9: V45.69, ICD10: Z98.890 Stable, continue to monitor. Recommended yearly exams. Alla Vee, OD I have confirmed and edited as necessary the relevant ophthalmic history, ROS, and the neuro exam findings as obtained by others. [facility]-01-2023 Patient Instructions Note Date & Type Note Facility 02-01-2023 Instructions Alla Vee, OD - 02/01/2023 2:17 PM EDT ASSESSMENT/PLAN: 1. Vitreous floaters of both eyes - ICD9: 379.24, ICD10: H43.393 (primary diagnosis) Vitreal floaters stable both eyes. Retinas flat and intact with no apparent retinal tear or traction. Discussed symptoms of retinal tear/detachment and if seen patient will return to clinic without delay. 2. S/P LASIK (laser assisted in situ keratomileusis) of both eyes - ICD9: V45.69, ICD10: Z98.890 Stable, continue to monitor. Recommended yearly exams. documented in this encounter [facility] History of Present illness Narrative 02-01-2023 Alla Vee, OD - 02/01/2023 2:16 PM EDT Note Date & Type Note Facility 02-01-2023 History of Presen t illness Narrative ASSESSMENT/PLAN: 1. Vitreous floaters of both eyes - ICD9: 379.24, ICD10: H43.393 (primary diagnosis) Vitreal floaters stable both eyes. Retinas flat and intact with no apparent retinal tear or traction. Discussed symptoms of retinal tear/detachment and if seen patient will return to clinic without delay. 2. S/P LASIK (laser assisted in situ keratomileusis) of both eyes - ICD9: V45.69, ICD10: Z98.890 Stable, continue to monitor. Recommended yearly exams. Alla Vee, OD I have confirmed and edited as necessary the relevant ophthalmic history, ROS, and the neuro exam findings as obtained by others. documented in this encounter [facility] Instructions 01-29-2022 Patient Instructions Note Date & Type Note Facility 01-29-2022 Instructions Alla Vee, OD - 01/29/2022 1:47 PM EDT ASSESSMENT/PLAN: 1. Vitreous floaters of both eyes - ICD9: 379.24, ICD10: H43.393 (primary diagnosis) Vitreal floaters stable both eyes. Retinas flat and intact with no apparent retinal tear or traction. Discussed symptoms of retinal tear/detachment and if seen patient will return to clinic without delay. 2. S/P LASIK (laser assisted in situ keratomileusis) of both eyes - ICD9: V45.69, ICD10: Z98.890 Encouraged him to use the artificial tears more frequently. Recommended yearly exams. documented in this encounter [facility] History of Present illness Narrative 01-29-2022 Alla Vee, OD - 01/29/2022 1:46 PM EDT Note Date & Type Note Facility 01-29-2022 History of Presen t illness Narrative ASSESSMENT/PLAN: 1. Vitreous floaters of both eyes - ICD9: 379.24, ICD10: H43.393 (primary diagnosis) Vitreal floaters stable both eyes. Retinas flat and intact with no apparent retinal tear or traction. Discussed symptoms of retinal tear/detachment and if seen patient will return to clinic without delay. 2. S/P LASIK (laser assisted in situ keratomileusis) of both eyes - ICD9: V45.69, ICD10: Z98.890 Encouraged him to use the artificial tears more frequently. Recommended yearly exams. Alla Vee, ALLYN documented in this encounter [facility] Evaluation note Note Date & Type Note Facility documented in this encounter [facility] Summary Purpose Family History No Family History Records FoundNo Family History Records Found Advance Directives No Advanced Directives Records FoundNo Advanced Directives Records Found Medications Administered Section Active Administered Medications - up to 3 most recent administrations Medication Order MAR Action Action Date Dose Rate Site fluorescein-benoxinate 0.25-0.4 % 1 Drop (FLURESS) 1 Drop, BOTH EYES, DIRECTED, Starting on Tue01/29/22 at 1330, Until 01/30/22 at 0129, Administer for applanation tonometry. In the event of a Fluress shortage, administer Carrier-Fluor 1 drop into both eyes as directed for applanation tonometry Given 01/29/2022 1:30 PM EDT 1 Drop proparacaine 0.5 % 1 Drop (ALCAINE) 1 Drop, BOTH EYES, DIRECTED, Starting on Tue01/29/22 at 1330, Until 01/30/22 at 0129, Administer for pneumo tonometry, tonopen tonometry, or pachymetry. In the event of a proparacaine shortage, administer tetracaine 0.5% ophthalmic drops 1 drop in the left eye as directed for pneumo tonometry, tonopen tonometry, or pachymetry Given 01/29/2022 1:30 PM EDT 1 Drop tropicamide 1 % 1 Drop (MYDRIACYL) 1 Drop, BOTH EYES, DIRECTED, Starting on Tue01/29/22 at 1330, Until 01/30/22 at 0129, Administer for dilation Given 01/29/2022 1:30 PM EDT 1 Drop Inactive Administered Medications - up to 3 most recent administrations Medication Order MAR Action Action Date Dose Rate Site PHENYLephrine 2.5 % 1 Drop (AK-DILATE, MARIELENA-SYNEPHRINE) 1 Drop, BOTH EYES, DIRECTED, Starting on Tue02/01/23 at 1400, Until Tue02/02/23 at 0159, Administer for dilation PROTECT FROM LIGHT Given 02/01/2023 2:00 PM EDT 1 Drop proparacaine 0.5 % 1 Drop (ALCAINE) 1 Drop, BOTH EYES, DIRECTED, Starting on Tue02/01/23 at 1400, Until Tue02/02/23 at 0159, Administer for pneumo tonometry, tonopen tonometry, or pachymetry. In the event of a proparacaine shortage, administer tetracaine 0.5% ophthalmic drops 1 drop in the left eye as directed for pneumo tonometry, tonopen tonometry, or pachymetry Given 02/01/2023 2:00 PM EDT 1 Drop tropicamide 1 % 1 Drop (MYDRIACYL) 1 Drop, BOTH EYES, DIRECTED, Starting on Tue02/01/23 at 1400, Until Tue02/02/23 at 0159, Administer for dilation Given 02/01/2023 2:00 PM EDT 1 Drop Additional Source Comments (unrecognized sect ion and content) No Status Records FoundNo Status Records Found INFORMATION SOURCE (unrecogn ized section and content) DATE CREATED AUTHOR AUTHOR'S ORGANIZ ATION 02/05/2023 [facility] Source Comments (unrecognize d section and content) In the event this informatio n is protected by the Federal Confidentiality of Alcohol and Drug Abuse Patient Records regulations: The Federal rules restrict any use of the information to criminally investigate or prosecute any alcohol or drug abuse patient.[facility] the event this information is protected by the Federal Confidentiality of Alcohol and Drug Abuse Patient Records regulations: The Federal rules restrict any use of the information to criminally investigate or prosecute any alcohol or drug abuse patient.[facility] Reason for Visit (unrecogniz ed section and content) Reason Comments Floaters Both Eyes Continue with no naty nges, denies flashes of light Care Teams (unrecognized sec tion and content) Ore Bridge Operator Relationship Specialty Start Date End Date Mindy High [address] [place] [address] PCP - General Family Medicine 02/01/23 FOR RECORDS PERTAINING TO PATIENTS WHO ARE OR HAVE BEEN ENROLLED IN A CHEMICAL DEPENDENCY/SUBSTANCEABUSE PROGRAM, SOME INFORMATION MAY BE OMITTED. This clinical summary was aggregated from multiple sources. Caution should be exercised in using it in the provision of clinical care. This summary normalizes information from multiple sources, and as a consequence, information in this document may materially change the coding, format and clinical context of patient data. In addition, data may be omitted in some cases. CLINICAL DECISIONS SHOULD BE BASED ON THE PRIMARY CLINICAL RECORDS. [facility]. provides no warranty or guarantee of the accuracy or completeness of information in this document.
[2023-12-02 10:31] LABS: AST(SGOT) 27 U/L (15-37); Alanine Aminotransfer ALT/SGPT 64 U/L (16-61); Albumin, Serum 4.2 g/dL (3.2-5.0); Alkaline Phosphatase 98 U/L (45-117); Anion Gap 5 (5-15); BUN 17 mg/dL (7-18); BUN/Creat Ratio 17.9 RATIO (10-20); Calcium,Total 9.4 mg/dL (8.5-10.1); Chloride 103 mmol/L (98-107); Cholesterol 220 mg/dL (200); Creatinine, Serum 0.95 mg/dL (0.70-1.30); EST Glomerular Filtration Rate 89 mL/min (>60); Est Glom Filt Rate - Afr Amer 108 mL/min (>60); Glucose 103 mg/dL (74-106); High Density Lipoprotein 49 mg/dL; Potassium 3.9 mmol/L (3.5-5.1); Protein, Total 8.2 g/dL (6.4-8.2); Sodium Level 138 mmol/L (136-145); Triglycerides 162 mg/dL; Very Low Density Lipoprotein 32 mg/dL (5-40)
[2023-12-06 14:45] LABS: Hemoglobin A1c 5.5 % (3.8-5.6)
== END | disposition home or self-care (01) ==
LOC: MFPLAB 09:14
PROVIDERS: PCP Family Medicine; Visit Provider Family Medicine
DX: E78.1 Pure hyperglyceridemia (principal); E55.9 Vitamin D deficiency, unspecified; R73.09 Other abnormal glucose
CPT/HCPCS: 36415; 80053; 80061; 82306; 83036

== ENCOUNTER 2024-04-05 18:11 | Emergency (ER) | payer BC, SELFPAY ==
[2024-04-05 18:11] VITALS: BP 143/91; PULSE 62; RESP 15; TEMP 36.4; O2SAT 98; BMI 31.4
--- NOTE | 2024-04-05 18:20 | EDS_ITS ---
HPI History of Present Illness Chief Complaint: Lower Extremity Injury Informant: patient Onset/Context/Timing Onset: Days Context: Gradual Onset Narrative Narrative: Patient present secondary to left lower leg pain for the past 5 days. He has a history of varicose veins. There is an area on the medial proximal lower leg that has become painful and red over the past 5 days. He does not remember injuring it on anything. No history of DVT. PFSH PFS Medical History no medical history no medical history Home Medications ?Medication ?Instructions ?Recorded ?Last Taken ?Type multivitamin with folic acid 400 1 tab PO DAILY supplement 11/06/13 12/08/19 History mcg tablet (Thera) Dhea DAILY supplement 12/09/19 12/08/19 History Fish Oil DAILY supplement 12/09/19 12/08/19 History Vitamin C DAILY supplement 12/09/19 12/08/19 History Vitamin D DAILY supplement 12/09/19 12/08/19 History Allergy/AdvReac Type Severity Reaction Status Date / Time No Known Allergies Allergy Verified 12/15/21 16:07 Social History Smoking Status: Never smoker alcohol intake: current alcohol intake frequency: a few times a week Alcohol type: beer ROS ROS ED Constitutional Constitutional ED: Denies chills or fever(s) Cardiovascular Cardiovascular: Denies chest pain Respiratory/Chest Respiratory/Chest: Denies cough or dyspnea Gastrointestinal Gastrointestinal: Denies abdominal pain, nausea or vomiting Musculoskeletal Musculoskeletal: Reports extremity pain; Denies back pain Integumentary Denies Abrasions or rash Neurologic Neurologic: Denies headache(s) or weakness Psychiatric Psychiatric: Denies anxiety or depression Allergic/Immunologic Allergic/Immunologic ED: Denies lip swelling or urticaria EXAM Physical Exam Const Vital Signs: 04/05/24 18:11 Temperature 97.6 F L Temperature Source Temporal Pulse Rate 62 Respiratory Rate 15 Blood Pressure 143/91 H Blood Pressure Mean 108 Pulse Ox 98 Positive well nourished and well developed General Appearance ED: well developed HEENT Reports moist mucous membranes normocephalic Neck full ROM Chest Wall inspection of chest normal and palpation of chest normal Resp normal respiratory effort and clear to auscultation bilaterally Cardio regular rate and regular rhythm GI non-tender Palpation: soft Extremity Extremity Narrative: 2+ edema to the left lower leg. Warm and edematous varicose veins on the medial proximal lower leg. No sign of cellulitis or open wound. Neuro oriented x3 and no sensory deficits noted Motor Exam: strength 5/5 throughout Psych mental status grossly normal MDM MDM MDM Narrative Medical decision making narrative: Exam findings are consistent with superficial thrombophlebitis. Venous ultrasound of the left leg will be obtained to rule out any evidence of DVT. Venous ultrasound of the lower extremity reveals no evidence of DVT but patient does have superficial thrombophlebitis. This was discussed with him. He will take full-size aspirin daily we discussed appropriate elevation. Return instructions given. Radiography Diagnostic Testing: Clinical Impression(s) from Imaging Studies Venous Duplex 04/05/24 19:00 IMPRESSION: No evidence for deep venous thrombosis.. Electronically Signed: Pedrito Briseno MD at 19:34 EDT Reading Location ID and State: [address] [place] [address] Tel , Service support , Discharge Plan Triage Chief Complaint: Lower Extremity Injury ED Provider: Latoya Rivera Dx/Rx/DC Orders Clinical Impression: Superficial thrombophlebitis Instructions: ED Thrombophlebitis, Superficial Prescriptions: No Action multivitamin with folic acid [Thera] 1 TABLET tablet 1 tab PO DAILY Dhea DAILY Fish Oil DAILY Vitamin C DAILY Vitamin D DAILY Primary Care Provider: Brandon High Referrals: Brandon High MD [Primary Care Provider] - 10-14 Days if not better Print Language: Greek Disposition Disposition: Home, Self Care
--- NOTE | 2024-04-05 19:00 | US_ITS ---
STUDY: VENOUS DOPPLER ULTRASOUND - LEFT LOWER EXTREMITY REASON FOR EXAM: Male, 53 years old. LT UPPER MEDIAL CALF AREA OF PAIN AND REDNESS TECHNIQUE: Ultrasound evaluation of the deep vein system to include lozoya-scale imaging and compression was performed. Lozoya-scale imaging and Doppler sonographic evaluation, including duplex spectral analysis and qualitative color flow sonography, was performed. COMPARISON: None. FINDINGS: Common Femoral Vein: Normal compression, spontaneity and augmentation. Normal color Doppler. Common Femoral Vein/Greater Saphenous Junction: Normal compression, spontaneity and augmentation. Normal color Doppler. Deep Femoral Vein: Normal compression, spontaneity and augmentation. Normal color Doppler. Femoral Proximal: Normal compression, spontaneity and augmentation. Normal color Doppler. Femoral Middle: Normal compression, spontaneity and augmentation. Normal color Doppler. Femoral Distal: Normal compression, spontaneity and augmentation. Normal color Doppler. Popliteal Vein: Normal compression, spontaneity and augmentation. Normal color Doppler. Posterior Tibial Vein: Normal compression, spontaneity and augmentation. Normal color Doppler. Peroneal Vein: Normal compression, spontaneity and augmentation. Normal color Doppler. Incidental finding of superficial thrombophlebitis of the left medial upper calf US/Venous Duplex Imag/Limited/Uni IMPRESSION: No evidence for deep venous thrombosis.. Electronically Signed: Pedrito Briseno MD at 19:34 EDT Reading Location ID and State: [facility] / [place] Tel , Service support ,
[2024-04-05 19:40] VITALS: BP 130/95; PULSE 61; RESP 16; TEMP 36.7; O2SAT 98
== END 2024-04-05 19:42 | disposition home or self-care (01) ==
PROVIDERS: Emergency Provider Emergency Medicine; PCP Family Medicine; Visit Provider Emergency Medicine
DX: I80.02 Phlebitis and thrombophlebitis of superficial vessels of left lower extremity (principal)
CPT/HCPCS: 93971; 99282

== ENCOUNTER → 2024-06-08 | Outpatient (CLI) | payer BC, SELFPAY ==
--- NOTE | 2024-06-08 07:59 | VDLE_ITS ---
Reason For Study: LLE Pain RIGHT LEFT FV is compressible, spontaneous, phasic, CFV is compressible, spontaneous, phasic, competent and demonstrates normal competent, and demonstrates normal augmentation. augmentation. Procedure FV is compressible, spontaneous, phasic, This is a venous duplex using B-mode, color competent and demonstrates normal flow and spectral Doppler. augmentation. Exam performed in department. POP V is compressible, spontaneous, phasic, The exam was diagnostic. competent and demonstrates normal A preliminary report was called and/or faxed augmentation. to Vascular PA Lynnette Vernon. T/P Trunk is compressible. PTV is compressible. LT PerV is compressible. SFJ is competent and measures 0.66 cm. GSV proximal thigh measures 0.46 x 0.48 cm. LT GSV and Varicosities branching off GSV appear dilated and NONCOMPRESSIBLE with intraluminal echoes from mid thigh to mid calf. Finding is consistent with ACUTE Superficial Vein Thrombosis. Unable to complete reflux study due to finding. SSV proximal calf is competent and measures 0.09 x 0.11 cm. VL/Venous Duplex US, Unilateral Interpretation Summary Acute superficial vein thrombosis noted in the left great saphenous vein and ad jacent varicosities Deep veins of the left lower extremity are patent and compressible segmentally. There is no evidence of left lower extremity deep vein thrombosis. Ordering Physician: Lynnette Vernon Referring Physician: Brandon High Performed By: Ge Blas RVT
== END | disposition home or self-care (01) ==
LOC: CVS 07:55
PROVIDERS: PCP Family Medicine; Referring Provider Physician Assistant; Visit Provider Physician Assistant
DX: I83.892 Varicose veins of left lower extremity with other complications (principal)
CPT/HCPCS: 93971